=== PATIENT | female | born 1955 | race Caucasian/White ===

== ENCOUNTER → 2023-05-29 12:48 | Outpatient (REF) | payer MEDICARE, OTHER, SELFPAY | LOC: HWRAD 12:48 | PROVIDERS: ATTENDING PHYSICIAN Physician Assistant Medical; FAMILY PHYSICIAN Family Medicine | DX: Z96.642 Presence of left artificial hip joint (principal); M16.12 Unilateral primary osteoarthritis, left hip | CPT/HCPCS: 76882 ==

== ENCOUNTER → 2023-06-24 06:45 | Day surgery (SDC) | payer MEDICARE, OTHER, SELFPAY ==
[2023-06-13 13:29] VITALS: BMI 30.4
--- NOTE | 2023-06-24 12:22 | PTCARENOTE ---
Dr. Ortiz came to see and adri patient. Patient and Dr. Ortiz both discussed that they coud not feel the seroma any longer so the surgery was cancelled. Diana JIMÉNEZ at the OR desk , JESSY Hernandez SDS Tool Clerk and Landy SALVADOR were all made
aware that the patient's surgery was cancelled.
== END | disposition home or self-care (01) ==
LOC: SDS 06:45
PROVIDERS: ATTENDING PHYSICIAN Specialist
DX: L76.34 Postprocedural seroma of skin and subcutaneous tissue following other procedure (principal); Y83.8 Other surgical procedures as the cause of abnormal reaction of the patient, or of later complication, without mention of misadventure at the time of the procedure; Z53.8 Procedure and treatment not carried out for other reasons
CPT/HCPCS: 10140

== ENCOUNTER → 2023-07-30 11:03 | Outpatient (REF) | payer MEDICARE, OTHER, SELFPAY | LOC: HWEVLT 11:03 | PROVIDERS: ATTENDING PHYSICIAN Radiology Diagnostic Radiology | DX: I83.892 Varicose veins of left lower extremity with other complications (principal) | CPT/HCPCS: 93971 ==

== ENCOUNTER → 2023-11-14 12:55 | Outpatient (REF) | payer MEDICARE, OTHER, SELFPAY | LOC: HWEVLT 12:55 | PROVIDERS: ATTENDING PHYSICIAN Radiology Vascular & Interventional Radiology | DX: I83.892 Varicose veins of left lower extremity with other complications (principal) | CPT/HCPCS: 36478 ==

== ENCOUNTER 2023-11-23 13:30 | Emergency (ER) | payer MEDICARE, OTHER, SELFPAY ==
[2023-11-23 13:36] VITALS: BP 124/74
[2023-11-23 15:25] VITALS: BP 127/65
--- NOTE | 2023-11-23 15:58 | ED.GENMED ---
History of Present Illness
<Sakshi Patel PA-C - Last Filed: 11/23/23 21:46>
General
Chief Complaint: Eye Problems
Source: patient
Time Seen by Provider: 11/23/23 15:32
History of Present Illness
History of Present Illness:
68yoF with a history of rheumatoid arthritis and prior bilateral cataract repair presenting for evaluation after a left eye injury. She was weed wacking when a small rock hit her in the left eye. She had bleeding from the left eye afterwards. She
reports pain and foreign body sensation in the left eye currently. No photophobia or visual disturbance. She does not use glasses or contact lenses.
Past History
<Sakshi Patel PA-C - Last Filed: 11/23/23 21:46>
Past History
ED Past Medical History: None
ED Past Surgical History: None
Phy Exam
<Sakshi Patel PA-C - Last Filed: 11/23/23 21:46>
Physical Exam
Physical Exam:
L eye: Subconjunctival hemorrhage noted on lateral sclera. PERRL. EOMs intact. Visual orellana normal. Visual acuity 20/30 L, 20/20 R. There is a jagged abrasion at the 3:00 position of the iris on fluorescein stain. Negative Perez sign.
General Physical Exam
General Presentation: well appearing and no apparent distress
General age: appears stated age
General Skin: warm and dry
General Habitus: normal
General Mental: alert
Eye Exam
Eye Exam: PERRL, EOMI and visual orellana normal
Course
<Sakshi Patel PA-C - Last Filed: 11/23/23 21:46>
Orders/Labs/Results
Orders:
Orders
11/23/23 15:33
Visual Acuity- Treatment ONCE
Vital Signs
Initial and Last Documented VS:
Initial Vital Signs
Temp Pulse Resp BP Pulse Ox
97.7 F 72 22 124/74 97
11/23/23 13:36 11/23/23 13:36 11/23/23 13:36 11/23/23 13:36 11/23/23 13:36
Last Documented Vital Signs
Temp Pulse Resp BP Pulse Ox
97.7 F 55 16 121/87 99
11/23/23 13:36 11/23/23 16:30 11/23/23 16:30 11/23/23 16:30 11/23/23 16:30
<Zuleima Cee MD - Last Filed: 11/23/23 16:24>
Orders/Labs/Results
Orders:
Orders
11/23/23 15:33
Visual Acuity- Treatment ONCE
Vital Signs
Initial and Last Documented VS:
Initial Vital Signs
Temp Pulse Resp BP Pulse Ox
97.7 F 72 22 124/74 97
11/23/23 13:36 11/23/23 13:36 11/23/23 13:36 11/23/23 13:36 11/23/23 13:36
Last Documented Vital Signs
Temp Pulse Resp BP Pulse Ox
97.7 F 55 16 121/87 99
11/23/23 13:36 11/23/23 16:30 11/23/23 16:30 11/23/23 16:30 11/23/23 16:30
<Sakshi Patel PA-C - Last Filed: 11/23/23 21:46>
MDM/Problems Addressed
Differential Diagnosis Includes:
68yoF here with L eye pain and foreign body sensation after a small rock hit her in the L eye. No visual disturbance and visual acuity 20/30 in affected eye. Subconjunctival hemorrhage noted and abrasion noted on fluorescein stain. Perez sign is
negative. No clinical evidence of globe rupture. She was started on erythromycin ointment. Advised f/u with ophthalmology.
<Sakshi Patel PA-C - Last Filed: 11/23/23 21:46>
*Critical Care Note
Total Time (30-74mins, 75-104mins- exclusive of procedures): Not Applicable
ED Attending Note
<Sakshi Patel PA-C - Last Filed: 11/23/23 21:46>
-
Portions of this chart may have been created with voice recognition software.� Occasional wrong word or��sound alike� substitutions may have occurred due to the inherent limitations of voice recognition software.
<Zuleima Cee MD - Last Filed: 11/23/23 16:24>
ED Attending Note
Patient seen and examined by attending physician: Yes
I performed the substantive portion of visit, reviewed & personally made and approve the management plan that is documented in note by myself or ORALIA.: Yes
ED Attending Note:
68-year-old woman presenting to the emergency department with an eye problem. Patient states that she was working in her garden when she believes a rock hit her left eye. She did notice some bleeding to the left eye and some blurry vision. She is
having some pain and foreign body sensation. She came to the emergency department for further evaluation. Vitals are normal and her eye exam under fluorescein staining does show corneal abrasion at the 4 o'clock position as well as a some
conjunctival hemorrhage to the lateral aspect of the eye. Extraocular movement intact. No Perez sign. Vision grossly intact. Will treat with erythromycin ointment. She does have ophthalmology follow-up planned for early November. Strict
return precautions given.
Discharge Plan
Departure
Patient Disposition: Home (Routine Discharge)
Date of Disposition: 11/23/23
Time of Disposition: 16:16
Patient with high blood pressure during this ER visit?: No
Discharge Problem:
Abrasion of left cornea
Instructions: Corneal Abrasion (DC)
Prescriptions:
New
erythromycin 5 mg/gram (0.5 %) ointment
0.5 inch LEFT EYE QID 5 Days Qty: 3.5 0RF
No Action
duloxetine 30 MG capsule,delayed release(DR/EC)
60 mg PO HS
folic acid 1 MG tablet
1 mg PO DIRECTED
Rx Instructions:
skip on
Biotin
1 tab PO HS
Rx Instructions:
pt unable to provide exact dose
Vitamin B12:
1 cap PO HS
Rx Instructions:
pt unable to provide exact dose
Vitamin D3 (cholecalciferol):
3,000 unit PO HS
Rx Instructions:
pt unable to provide exact dose
methotrexate sodium 2.5 MG tablet
7.5 mg PO MARQUEZ
polyethylene glycol 3350 17 GRAMS powder in packet
17 grams PO PRN PRN (Reason: constipation)
infliximab [Remicade] 100 MG/10 ML recon soln
100 mg IV .Q6 WEEKS Qty: 0 0RF
Rx Instructions:
Hold for 4 weeks post-surgery.
Referrals:
Ana Maria Chang DO [Family Provider] -
Ny Guardado MD [Active] -
Activity Restrictions/Additional Instructions:
Use antibiotic eye ointment as prescribed. Take Tylenol as needed for pain. You may also use cool compresses as needed.
Please follow-up with your eye doctor in 2-3 days.
Interventions
Interventions:
*Risk Screen - Suicide Last Done: 11/23/23 13:36
*General Assessment Last Done: 11/23/23 13:36
*Neglect/Abuse Screening Last Done: 11/23/23 13:36
ED- Fall Risk Assessment Last Done: 11/23/23 15:21
*ED COVID-19 Vaccine History Last Done: 11/23/23 15:20
*Nursing Disposition Last Done: 11/23/23 16:30
Discharge Date and Time
Discharge Date/Time: 11/23/23 16:31
Print Language: DANISH
[2023-11-23 16:30] VITALS: BP 121/87
== END 2023-11-23 16:31 | disposition home or self-care (01) ==
LOC: EMR 13:30
PROVIDERS: EMERGENCY PHYSICIAN Student in an Organized Health Care Education/Training Program; FAMILY PHYSICIAN Family Medicine
DX: S05.02XA Injury of conjunctiva and corneal abrasion without foreign body, left eye, initial encounter (principal); H11.32 Conjunctival hemorrhage, left eye; W20.8XXA Other cause of strike by thrown, projected or falling object, initial encounter; Y93.H2 Activity, gardening and landscaping; M06.9 Rheumatoid arthritis, unspecified; Z88.6 Allergy status to analgesic agent; Z88.3 Allergy status to other anti-infective agents; Z88.0 Allergy status to penicillin; Z88.8 Allergy status to other drugs, medicaments and biological substances; Z91.018 Allergy to other foods
CPT/HCPCS: 99283

== ENCOUNTER → 2023-11-28 11:06 | Outpatient (REF) | payer MEDICARE, OTHER, SELFPAY | LOC: HWEVLT 11:06 | PROVIDERS: ATTENDING PHYSICIAN Radiology Vascular & Interventional Radiology | DX: I83.892 Varicose veins of left lower extremity with other complications (principal) | CPT/HCPCS: 93971 ==

== ENCOUNTER → 2023-12-27 16:28 | Outpatient (REF) | payer MEDICARE, OTHER, SELFPAY | LOC: PAVMRI 16:28 | PROVIDERS: ATTENDING PHYSICIAN Specialist; FAMILY PHYSICIAN Family Medicine | DX: Z96.642 Presence of left artificial hip joint (principal); M54.50 Low back pain, unspecified | CPT/HCPCS: 72148; 73721 ==

== ENCOUNTER → 2024-10-29 11:25 | Outpatient (REF) | payer MEDICARE, OTHER, SELFPAY | LOC: HWRAD 11:25 | PROVIDERS: ATTENDING PHYSICIAN Family Medicine | DX: R59.0 Localized enlarged lymph nodes (principal) | CPT/HCPCS: 76536 ==

== ENCOUNTER → 2024-12-16 10:31 | Outpatient (REF) | payer MEDICARE, OTHER, SELFPAY | LOC: HWRAD 10:31 | PROVIDERS: ATTENDING PHYSICIAN Family Medicine | DX: M81.0 Age-related osteoporosis without current pathological fracture (principal); Z13.820 Encounter for screening for osteoporosis; Z12.31 Encounter for screening mammogram for malignant neoplasm of breast | CPT/HCPCS: 77063; 77067; 77080 ==

== ENCOUNTER → 2025-03-11 14:56 | Outpatient (REF) | payer MEDICARE, OTHER, SELFPAY | LOC: RAD 14:56 | PROVIDERS: ATTENDING PHYSICIAN Family Medicine | DX: R59.0 Localized enlarged lymph nodes (principal) | CPT/HCPCS: 70491; Q9967 ==